=== PATIENT | male | born 1990 | race Caucasian/White ===

== ENCOUNTER 2017-02-07 18:23 | Emergency (ER) | payer SELFPAY ==
[~2017-02-07] VITALS: Ht 182.9 cm; Wt 102.5 kg
[2017-02-07 20:36] VITALS: BP 138/71
== END 2017-02-07 20:36 | disposition home or self-care (01) ==
LOC: ED 18:23
DX: K08.89 Other specified disorders of teeth and supporting structures (principal); J45.909 Unspecified asthma, uncomplicated; Z79.51 Long term (current) use of inhaled steroids
CPT/HCPCS: J1885